=== PATIENT | female | born 1990 | race Hispanic/Latino ===

== ENCOUNTER 2018-02-14 18:27 | Emergency (ER) | payer SELFPAY ==
[2018-02-14 19:10] LABS: APPEARANCE,URINE CLOUDY (CLEAR); BILIRUBIN,URINE NEGATIVE (NEGATIVE); COLOR,URINE YELLOW (YELLOW); GLUCOSE, URINE (UA) NEGATIVE (NEGATIVE); KETONES,URINE NEGATIVE (NEGATIVE); LEUKOCYTE ESTERASE ,URINE NEGATIVE (NEGATIVE); NITRATE,URINE NEGATIVE (NEGATIVE); OCCULT BLOOD,URINE NEGATIVE (NEGATIVE); PH,URINE 7.5 (5.0-8.0); PROTEIN,URINE NEGATIVE (NEGATIVE); UROBILINOGEN,URINE 0.2 mg/dL (0.2-1.0)
[2018-02-14 19:13] LABS: HCG,QUAL RESULT NEGATIVE (NEGATIVE)
[2018-02-14 19:26] LABS: BACTERIA,URINE Few /HPF (None Seen); RBC,URINE 0-1 /HPF (0-1); SQUAMOUS EPITHELIAL CELL,UR None Seen /HPF (0-2); WBC,URINE 0-1 /HPF (0-1)
[2018-02-14] MEDS ORDERED: LIDOCAINE HCL-MPF 1% 2ML VIAL ONE (19:26)
[2018-02-14 19:27] LABS: AMORPHOUS SEDIMENT,UR Moderate /LPF (None Seen)
[2018-02-14] MEDS ORDERED: KETOROLAC TROMETHAMINE 60 MG/2 ML VIAL ONE (19:27)
[2018-02-14] MEDS ORDERED: CEFTRIAXONE SODIUM 1 GM ONE (19:27)
== END 2018-02-14 19:59 | disposition home or self-care (01) ==
LOC: EDH 18:27
DX: N61.0 Mastitis without abscess (principal)
CPT/HCPCS: 81001; 81025; 96372 ×2; 99284; J0696; J1885; J3490

== ENCOUNTER 2018-03-07 14:03 | Emergency (ER) | payer OTHER | END 2018-03-07 15:48 | disposition home or self-care (01) | LOC: EDH 14:03 | DX: N64.4 Mastodynia (principal); N60.12 Diffuse cystic mastopathy of left breast ==

== ENCOUNTER 2019-05-14 11:42 | Emergency (ER) | payer MEDICAID, OTHER, SELFPAY ==
[2019-05-14 13:10] LABS: RAPID GROUP A STREP NEGATIVE (NEGATIVE)
== END 2019-05-14 13:47 | disposition home or self-care (01) ==
LOC: EDH 11:42
DX: O98.511 Other viral diseases complicating pregnancy, first trimester (principal); R19.7 Diarrhea, unspecified; Z3A.09 9 weeks gestation of pregnancy
CPT/HCPCS: 87804; 87880

== ENCOUNTER 2019-07-06 01:00 | Emergency (ER) | payer MEDICAID ==
[2019-07-06 02:13] LABS: BASOPHILS % (AUTO) 0.2 % (0.0-5.0); EOSINOPHILS % (AUTO) 1.8 % (0.0-8.0); HEMATOCRIT 38.3 % (36-48); LYMPHOCYTES % (AUTO) 33.3 % (21.0-51.0); MEAN CORPUSCULAR HGB CONC 34.2 g/dL (32.0-36.0); MEAN CORPUSCULAR VOLUME 84.7 fL (79-99); MONOCYTES % (AUTO) 6.9 % (3.0-13.0); NEUTROPHILS % (AUTO) 57.2 % (40.0-77.0); PLATELET COUNT (AUTO) 273 K/uL (130-400); RED BLOOD CELL COUNT(AUTO) 4.52 MIL/uL (4.00-5.50); RED CELL DISTRIBUTION WIDTH 12.8 % (11.0-15.5)
[2019-07-06 02:15] LABS: APPEARANCE,URINE Clear (CLEAR); BILIRUBIN,URINE Negative (NEGATIVE); COLOR,URINE Dark Yellow (YELLOW); GLUCOSE, URINE (UA) Negative (NEGATIVE); KETONES,URINE Negative (NEGATIVE); LEUKOCYTE ESTERASE ,URINE Negative (NEGATIVE); NITRATE,URINE Negative (NEGATIVE); OCCULT BLOOD,URINE Negative (NEGATIVE); PH,URINE 7.5 (5.0-8.0); PROTEIN,URINE Negative (NEGATIVE)
[2019-07-06 02:24] LABS: CREATININE 0.5 mg/dL (0.5-1.5); POTASSIUM 3.1 mmol/L (3.5-5.1)
[2019-07-06 02:54] LABS: ALBUMIN 3.2 g/dL (3.5-5.0); BILIRUBIN,TOTAL 0.1 mg/dL (0.2-1.0); MAGNESIUM 1.9 mg/dL (1.80-2.40); TOTAL PROTEIN, SERUM 7.8 g/dL (6.0-8.3)
[2019-07-06] MEDS ORDERED: POTASSIUM BICARB/CIT AC 25 MEQ TABLET.EFF ONE (03:00)
== END 2019-07-06 03:11 | disposition home or self-care (01) ==
LOC: EDH 01:00
DX: O20.0 Threatened abortion (principal); O26.892 Other specified pregnancy related conditions, second trimester; E87.6 Hypokalemia; Z79.899 Other long term (current) drug therapy; Z3A.15 15 weeks gestation of pregnancy
CPT/HCPCS: 36415; 76801; 80053; 81003; 83735; 84702; 85025; 86850; 86900; 86901

== ENCOUNTER 2019-12-18 05:12 | Inpatient (IN) | payer MEDICAID ==
[~2019-12-18] VITALS: Ht 170.2 cm; Wt 88.5 kg
[2019-12-18] MEDS ORDERED: LACTATED RINGERS 1000ML 1,000 ML IV PRN ×2 (05:26→05:53)
[2019-12-18 05:42] LABS: APPEARANCE,URINE Clear (CLEAR); BILIRUBIN,URINE Negative (NEGATIVE); COLOR,URINE Yellow (YELLOW); GLUCOSE, URINE (UA) Negative (NEGATIVE); KETONES,URINE Trace mg/dL (NEGATIVE); LEUKOCYTE ESTERASE ,URINE Trace (NEGATIVE); NITRATE,URINE Negative (NEGATIVE); OCCULT BLOOD,URINE Negative (NEGATIVE); PROTEIN,URINE Negative (NEGATIVE)
[2019-12-18] MEDS ORDERED: ROPIVACAINE 0.2% 100ML VIAL 100 ML EP SCH (06:00)
[2019-12-18] MEDS ORDERED: LACTATED RINGERS 500 ML 500 ML IV PRN (06:00)
[2019-12-18] MEDS ORDERED: AMPICILLIN 2GM+NS 100ML 100 ML IV SCH (06:00)
[2019-12-18] MEDS ORDERED: EPHEDRINE SULFATE 50 MG/ML AMPULE IVP PRN (06:00)
[2019-12-18] MEDS ORDERED: NALOXONE HCL 0.4 MG/1 ML ML IV PRN (06:00)
[2019-12-18] MEDS ORDERED: AMPICILLIN 2GM+NS 100ML 100 ML IV ONE (06:01)
[2019-12-18 06:02] LABS: HEMATOCRIT 40.6 % (36-48); MEAN CORPUSCULAR HEMOGLOBIN 29.5 pg (27.0-33.0); MEAN CORPUSCULAR HGB CONC 33.7 g/dL (32.0-36.0); MEAN CORPUSCULAR VOLUME 87.5 fL (79-99); RED BLOOD CELL COUNT(AUTO) 4.64 MIL/uL (4.00-5.50); RED CELL DISTRIBUTION WIDTH 13.3 % (11.0-15.5); WHITE BLOOD COUNT (AUTO) 9.5 K/uL (4.8-10.8)
[2019-12-18 06:38] LABS: BACTERIA,URINE Few /HPF (None Seen); RBC,URINE 0-1 /HPF (0-1); SQUAMOUS EPITHELIAL CELL,UR 0-2 /HPF (0-2); WBC,URINE 0-1 /HPF (0-1)
[2019-12-18] MEDS ORDERED: ONDANSETRON HCL 4 MG/2 ML VIAL ONE (06:58)
[2019-12-18] MEDS ORDERED: METOCLOPRAMIDE 10 MG/2 ML VIAL ONE (06:59)
[2019-12-18] MEDS ORDERED: AMMONIA 1 EA AMP IH ONE (07:00)
[2019-12-18] MEDS ORDERED: OXYTOCIN-LR 20 UNITS/1000 ML 1,000 ML IV ONE ×2 (07:53→10:34)
[2019-12-18] MEDS ORDERED: LIDOCAINE HCL 1% 20 ML VIAL ONE (09:13)
[2019-12-18] MEDS ORDERED: BENZOCAINE/LANOLIN/ALOE VERA 60 ML AEROSOL TP PRN (09:45)
[2019-12-18] MEDS ORDERED: WITCH HAZEL 1 PAD TP PRN (09:45)
[2019-12-18] MEDS ORDERED: LANOLIN 30GM OINTMENT TP PRN (09:45)
[2019-12-18] MEDS ORDERED: ACETAMINOPHEN 325 MG TAB PO PRN (09:45)
[2019-12-18] MEDS ORDERED: AMPICILLIN 1GM+NS 50ML 50 ML IV SCH (10:00)
[2019-12-18] MEDS: IBUPROFEN 600 MG TABLET PO PRN ×2 (10:36→17:09)
[2019-12-18 11:29] VITALS: BP 106/65
--- NOTE | 2019-12-18 11:30 | NUR ---
PATIENT ARRIVED TO UNIT VIA WHEELCHAIR FROM LABOR AND DELIVERY. FUNDUS FIRM BLEEDING IS SCANT. NO EDEMA NOTED TO LOWER BILATERAL EXTREMITIES. EPIDURAL CATHETER REMAINS IN PLACE APPEARS DRY AND INTACT. NO DRAINAGE NOTED TO DRESSING/TAPE. PATIENT STATES SHE NEEDED TO VOID AT THIS TIME. PATIENT ABLE TO AMBULATE WITHOUT ANY PROBLEMS AND ABLE TO VOID 600ML, PERICARE GIVEN. PATIENT AMBULATED BACK TO BED WITHOUT DIFFICULTIES. EDUCATED PATIENT ON USE AND DESIRED EFFECTS OF LANOLIN, DERMAPLAST SPRAY, TUCKS PADS AND SITZ BATH. PATIENT VOICED UNDERSTANDING. CALL LIGHT LEFT IN REACH, ADVISED PATIENT TO CALL WITH ANY NEEDS OR CONCERNS.
[2019-12-18] MEDS ORDERED: PNV1TABL17 PO (12:27)
[2019-12-18] MEDS: ACETAMINOPHEN-CODEINE 300/30MG TAB PO PRN ×2 (15:03→20:11)
--- NOTE | 2019-12-18 15:05 | NUR ---
PATIENT C/O THROBBING PAIN TO RIGHT KNEE 08/24. PATIENT STATES SHE IS ABLE TO AMBULATE BUT HAS INTERMITTENT PAIN. WARM COMPRESS GIVEN. ADVISED PATIENT TO CALL WITH ANY NEEDS OR ASSISTANCE AMBULATING. PATIENT VOICED UNDERSTANDING.
[2019-12-18 15:51] VITALS: BP 121/71
[2019-12-18 20:08] VITALS: BP 103/70
[2019-12-18] MEDS: DOCUSATE SODIUM 100 MG CAP PO SCH (20:12)
[2019-12-19 00:09] VITALS: BP 104/58
[2019-12-19] MEDS: IBUPROFEN 600 MG TABLET PO PRN ×3 (00:15→15:11)
[2019-12-19 03:51] VITALS: BP 107/64
[2019-12-19] MEDS: ACETAMINOPHEN-CODEINE 300/30MG TAB PO PRN (06:35)
[2019-12-19 07:28] VITALS: BP 109/69
[2019-12-19 08:13] LABS: HEPATITIS Bs ANTIGEN SCREEN P Negative (Negative)
--- NOTE | 2019-12-19 08:50 | NUR ---
TOMER MCKEON CRNA AND KANG REINOSO CRNA AT BEDSIDE TO REMOVE SPINAL CATHETER. S/S TO REPORT EXPLAINED TO PATIENT. QUESTIONS ASKED AND ANSWERED. TRISH SHARPE REMOVED CATHETER WITH TIP INTACT BANDAID APPLIED. ABDOMINAL BINDER IN PLACE. SALES ASSISTANTS AND SALESPERSONS TO FOLLOW UP WITH PATIENT ONCE DISCHARGED, INFORMATION HANDOUT REVIEWED AND HANDED TO PATIENT BY SALES ASSISTANTS AND SALESPERSONS.
[2019-12-19] MEDS: DOCUSATE SODIUM 100 MG CAP PO SCH (09:27)
[2019-12-19 11:20] VITALS: BP 99/60
--- NOTE | 2019-12-19 16:45 | NUR ---
PATIENT LEFT UNIT VIA WHEELCHAIR WITH BABY IN ARMS. PERSONAL VEHICLE USED FOR TRANSPORTATION ACCOMPANIED BY . BABY SECURE IN CARSEAT. NO COMPLAINTS OR CONCERNS ADDRESSED FROM PATIENT ON DISCHARGE.
== END 2019-12-19 16:45 | disposition home or self-care (01) | DRG 560 ==
LOC: EDH 05:12 → LDH 05:13 → OBSVTOIN 05:13 → WSH 11:25
PROC: 10E0XZZ Delivery of Products of Conception, External Approach (ICD-10-PCS; principal; 2019-12-18)
PROC: 0UQMXZZ Repair Vulva, External Approach (ICD-10-PCS; 2019-12-18)
PROC: 0W8NXZZ Division of Female Perineum, External Approach (ICD-10-PCS; 2019-12-18)
PROC: 3E0R3BZ Introduction of Anesthetic Agent into Spinal Canal, Percutaneous Approach (ICD-10-PCS; 2019-12-18)
PROC: 00HU33Z Insertion of Infusion Device into Spinal Canal, Percutaneous Approach (ICD-10-PCS; 2019-12-18)
PROC: 10907ZC Drainage of Amniotic Fluid, Therapeutic from Products of Conception, Via Natural or Artificial Opening (ICD-10-PCS; 2019-12-18)
DX: O71.82 Other specified trauma to perineum and vulva (principal); Z37.0 Single live birth; Z3A.39 39 weeks gestation of pregnancy
CPT/HCPCS: 36415; 81001; 85027; 86592; 86850; 86900; 86901; 87340; 99291; A4314; G0378; J0290; J2405; J2590; J2765; J2795; J3490; J7120

== ENCOUNTER 2019-12-22 16:45 | Emergency (ER) | payer MEDICAID ==
[~2019-12-22 16:45] MED LIST: PNV1TABL17 PO
== END 2019-12-22 19:10 | disposition home or self-care (01) ==
LOC: EDH 16:45
DX: O89.4 Spinal and epidural anesthesia-induced headache during the puerperium (principal)
CPT/HCPCS: 99281

== ENCOUNTER 2020-01-12 19:58 | Emergency (ER) | payer MEDICAID ==
[2020-01-12] MEDS ORDERED: OXYMETAZOLINE HCL SPRAY 15 ML BOTTLE ONE (20:21)
[2020-01-12] MEDS ORDERED: DEXAMETHASONE SOD PHOSPHATE 10MG/ML 1ML VIAL ONE (20:21)
== END 2020-01-12 21:46 | disposition home or self-care (01) ==
LOC: EDH 19:58
DX: J01.10 Acute frontal sinusitis, unspecified (principal)
CPT/HCPCS: 81025; 96372; 99283; J1100

== ENCOUNTER 2021-07-12 12:12 | Emergency (ER) | payer MEDICAID ==
[~2021-07-12] VITALS: Ht 170.2 cm; Wt 82.6 kg
[2021-07-12] MEDS ORDERED: LORAZEPAM 1 MG TABLET PO SCH (12:30)
[2021-07-12 12:41] LABS: APPEARANCE,URINE Clear (CLEAR); BILIRUBIN,URINE Negative (NEGATIVE); COLOR,URINE Yellow (YELLOW); GLUCOSE, URINE (UA) Negative (NEGATIVE); KETONES,URINE Negative (NEGATIVE); LEUKOCYTE ESTERASE ,URINE Trace (NEGATIVE); NITRATE,URINE Negative (NEGATIVE); OCCULT BLOOD,URINE Small (NEGATIVE); PROTEIN,URINE Negative (NEGATIVE); UROBILINOGEN,URINE 0.2 mg/dL (0.2-1.0)
[2021-07-12 13:13] LABS: BASOPHILS % (AUTO) 0.4 % (0.0-5.0); EOSINOPHILS % (AUTO) 0.9 % (0.0-8.0); HEMATOCRIT 40.6 % (36-48); LYMPHOCYTES % (AUTO) 22.4 % (21.0-51.0); MEAN CORPUSCULAR HGB CONC 30.8 g/dL (32.0-36.0); MEAN CORPUSCULAR VOLUME 77.9 fL (79-99); MONOCYTES % (AUTO) 6.9 % (3.0-13.0); NEUTROPHILS % (AUTO) 69.2 % (40.0-77.0); PLATELET COUNT (AUTO) 323 K/uL (130-400); RED BLOOD CELL COUNT(AUTO) 5.21 MIL/uL (4.00-5.50); WHITE BLOOD COUNT (AUTO) 8.9 K/uL (4.8-10.8)
[2021-07-12 13:20] LABS: BACTERIA,URINE Rare /HPF (None Seen); RBC,URINE 0-1 /HPF (0-1); SQUAMOUS EPITHELIAL CELL,UR Rare /HPF (0-2); WBC,URINE 0-1 /HPF (0-1)
[2021-07-12 13:24] LABS: CREATININE 0.6 mg/dL (0.5-1.5); POTASSIUM 3.6 mmol/L (3.5-5.1)
[2021-07-12 13:28] LABS: HCG,QUAL RESULT NEGATIVE (NEGATIVE)
[2021-07-12 13:28] LABS: ALBUMIN 4.2 g/dL (3.5-5.0); BILIRUBIN,TOTAL 0.4 mg/dL (0.2-1.0); TOTAL PROTEIN, SERUM 8.6 g/dL (6.0-8.3)
[2021-07-12] MEDS ORDERED: HYDR-3421 PO (14:18)
[2021-07-12 14:30] VITALS: BP 125/56
== END 2021-07-12 14:31 | disposition home or self-care (01) ==
LOC: EDH 12:12
DX: F41.9 Anxiety disorder, unspecified (principal); R07.89 Other chest pain
CPT/HCPCS: 36415; 71045; 80053; 81001; 81025; 84484; 85025

== ENCOUNTER 2022-04-05 14:38 | Emergency (ER) | payer MEDICAID ==
[~2022-04-05] VITALS: Ht 170.2 cm; Wt 86.2 kg
[~2022-04-05 14:38] MED LIST changes: +HYDR-3421 PO
[2022-04-05 14:39] VITALS: BP 111/78
[2022-04-05] MEDS ORDERED: CEPH500B PO (15:04)
[2022-04-05] MEDS ORDERED: IBUP-1493 PO (15:04)
== END 2022-04-05 15:10 | disposition home or self-care (01) ==
LOC: EDH 14:38
DX: N63.10 Unspecified lump in the right breast, unspecified quadrant (principal); Z98.890 Other specified postprocedural states

== ENCOUNTER 2023-05-18 00:29 | Emergency (ER) | payer MEDICAID, OTHER ==
[~2023-05-18] VITALS: Ht 170.2 cm; Wt 81.2 kg
[~2023-05-18 00:29] MED LIST changes: +CEPH500B PO; +IBUP-1493 PO
[2023-05-18 00:31] VITALS: BP 127/81
[2023-05-18 01:04] LABS: APPEARANCE,URINE CLEAR (CLEAR); BILIRUBIN,URINE NEGATIVE (NEGATIVE); COLOR,URINE YELLOW (YELLOW); GLUCOSE, URINE (UA) NEGATIVE (NEGATIVE); KETONES,URINE NEGATIVE (NEGATIVE); LEUKOCYTE ESTERASE ,URINE NEGATIVE Leu/uL (NEGATIVE); NITRATE,URINE NEGATIVE (NEGATIVE); OCCULT BLOOD,URINE NEGATIVE (NEGATIVE); PROTEIN,URINE NEGATIVE (NEGATIVE)
[2023-05-18 01:05] LABS: ADD UA MICROSCOPIC NO
[2023-05-18 06:00] VITALS: PULSE 88; RESP 20; O2SAT 99
[2023-05-18] MEDS ORDERED: METRONIDAZOLE 500 MG TABLET PO SCH (06:00)
[2023-05-18] MEDS ORDERED: METR-172 PO (06:03)
== END 2023-05-18 06:36 | disposition home or self-care (01) ==
LOC: EDH 00:29
DX: N76.0 Acute vaginitis (principal); B96.89 Other specified bacterial agents as the cause of diseases classified elsewhere; Z79.899 Other long term (current) drug therapy; Z98.890 Other specified postprocedural states
CPT/HCPCS: 81003; 81025